=== PATIENT | male | born 1945 | race Caucasian/White ===

== ENCOUNTER 2017-10-09 08:46 | Day surgery (SDC) | payer OTHER, MEDICARE ==
[~2017-10-09 08:46] MED LIST: PROPOFOL INJ 200 MG/20 ML VIAL IV ONE
[2017-10-09 11:38] VITALS: BP 159/91
--- NOTE | 2017-10-09 16:03 | Operative Report ---
Operative Report DATE OF SURGERY: 10/09/17 Operative Report: The risks, benefits and alternatives of the procedure including the risks of bleeding, perforation requiring surgery are explained to the patient in detail and informed consent is obtained. The patient is taken back to the endoscopy suite and placed in a left, lateral decubital position. Timeout was called. Propofol medication is administered. A rectal examination is done which did not reveal any masses, tears or fissures. An Olympus videoscope was inserted into the patient's rectum. The scope was then carefully advanced all the way to the cecum. The cecum was identified by the usual anatomical landmarks including the ileocecal valve as well as the appendiceal office. Photodocumentation is obtained. The scope was then sequentially pulled back via the various segments of the colon including the ascending colon, hepatic flexure, transverse colon, splenic flexure, descending colon as well as into the rectosigmoid portions of the colon. Retroflexion maneuver is performed. PREOPERATIVE DIAGNOSIS: Blood in stools POSTOPERATIVE DIAGNOSIS: Internal hemorrhoids. Right-sided colon inflammation status post biopsy OPERATION: Colonoscopy with biopsy SURGEON: DEBRA DUNCAN ANESTHESIA: LMAC TISSUE REMOVED OR ALTERED: As noted above. COMPLICATIONS: None. ESTIMATED BLOOD LOSS: None. INTRAOPERATIVE FINDINGS: As noted above. PROCEDURE: Patient tolerated the procedure well. No immediate postprocedure complications are noted. Patient discharged in good condition. Discharge date 10/09/2017. Discharge diet: Regular. Discharge activity: Regular. 2-3 week follow-up to discuss findings. Patient is instructed to call the office or proceed to the emergency room should there be any further problems or questions. Wait on the pathology. 5 year surveillance colonoscopy.
== END 2017-10-09 11:15 | disposition home or self-care (01) ==
LOC: END 08:46
PROVIDERS: ATTEND Internal Medicine Gastroenterology
DX: K92.1 Melena (principal); K64.8 Other hemorrhoids; K52.9 Noninfective gastroenteritis and colitis, unspecified; J44.9 Chronic obstructive pulmonary disease, unspecified; F17.210 Nicotine dependence, cigarettes, uncomplicated; I10 Essential (primary) hypertension; E11.3591 Type 2 diabetes mellitus with proliferative diabetic retinopathy without macular edema, right eye; K21.9 Gastro-esophageal reflux disease without esophagitis; M19.90 Unspecified osteoarthritis, unspecified site; J44.1 Chronic obstructive pulmonary disease with (acute) exacerbation; E03.9 Hypothyroidism, unspecified; E78.5 Hyperlipidemia, unspecified; Z86.73 Personal history of transient ischemic attack (TIA), and cerebral infarction without residual deficits; Z91.040 Latex allergy status; Z85.828 Personal history of other malignant neoplasm of skin; Z85.51 Personal history of malignant neoplasm of bladder
CPT/HCPCS: 45380; 82962; 88305 ×2; J2704; 811

== ENCOUNTER 2019-01-02 10:15 | Observation (INO) | payer OTHER, MEDICARE ==
[2019-01-02] MEDS ORDERED: INSULIN REG, HUMAN 100 UNIT/ML 3 ML VIAL (PYX) IV ONE ×2 (10:34→13:05)
[2019-01-02] MEDS ORDERED: NORMAL SALINE 1000 ML 1,000 ML IV PRN (10:35)
[2019-01-02 10:56] LABS: APPEARANCE,URINE CLEAR; BILIRUBIN,URINE NEGATIVE (NEGATIVE); COLOR,URINE STRAW; GLUCOSE, URINE >=500 mg/dL (NEGATIVE); KETONES,URINE NEGATIVE (NEGATIVE); LEUKOCYTE ESTERASE,URINE NEGATIVE (NEGATIVE); NITRITE,URINE NEGATIVE (NEGATIVE); PROTEIN,URINE NEGATIVE (NEGATIVE); URINE SPECIFIC GRAVITY 1.028; UROBILINOGEN,URINE NEGATIVE mg/dL (<2.0)
--- NOTE | 2019-01-02 11:01 | ER Document Report ---
ED Syncope and Near Syncope - General Chief Complaint: Syncope Stated Complaint: WEAKNESS Mode of Arrival: Stretcher Information source: Patient TRAVEL OUTSIDE OF THE [place] IN LAST 30 DAYS: No - HPI Patient complains to provider of: Fainting Multiple episodes (how many): 3 When did episodes begin: yesterday When was most recent episode: same Symptoms prior to episode: No: None, Abdominal pain, Back pain, Chest pain, Chills, Diarrhea, Dizziness, Fever, Headache, Hyperventilation, Lightheaded, Nausea/vomiting, Palpitations, Racing heart, Short of breath, Sweaty, Visual disturbance, Other Position/Activity at time of episode: Standing Quality of pain: denies: No pain, Achy, Burning, Cramping, Dull, Fullness, Pressure, Sharp, Stabbing, Throbbing, Other Severity: None Context: Became unresponsive. denies: Almost passed out, Breathing shallow/stopped, Collapsed, Confused after event, Meyers Chuck faint, Incontinent of stool, Incontinent of urine, Lost consciousness, Lost pulse, Low blood sugar, , Recent immobilization, Recent seizures, Recent travel, Seizure activity observed, Other Injury location: No: None, Abdomen, Back, Chest, Face, Head, Mouth, Neck, Tongue, LUE, LLE, RUE, RLE Current symptoms: denies: None/feels back to normal, Abdominal pain, Arm pain, Back pain, Breathing difficulty, Chest pain, Chills, Diarrhea, Dizziness, Fever, Headache, Lightheaded, Nausea, Neck pain, Shoulder pain, Short of breath, Swe aty, Vomiting, Weakness, Other D-stick result: >500 by ems Notes: Note patient is a 73-year-old xza-awqtfvz-eimhiyfqz diabetic who last night was walking and passed out 3 times time he felt somewhat dizzy before hand but no chest pain or shortness of breath. He also admits to being pliant with his diet and eating donuts and apparently his blood sugar by EMS was greater than 500 today. He also claims to have urinary symptoms of frequency and urgency of urination with a history of cancer - Related Data Allergies/Adverse Reactions: latex [Latex] Allergy (Verified 01/02/19 10:31) Past Medical History - Social History Smoking Status: Current Every Day Smoker Family History: Reviewed & Not Pertinent Patient has suicidal ideation: No Patient has homicidal ideation: No - Past Medical History Cardiac Medical History: Reports: Hx Coronary Artery Disease, Hx Hypercholesterolemia, Hx Hypertension Denies: Hx Heart Attack Pulmonary Medical History: Reports: Hx Asthma, Hx Bronchitis, Hx COPD, Hx Pneumonia Neurological Medical History: Reports: Hx Cerebrovascular Accident. Denies: Hx Seizures Endocrine Medical History: Reports: Hx Diabetes Mellitus Type 2 Malignancy Medical History: Reports Hx Prostate Cancer, Reports Hx Skin Cancer Musculoskeletal Medical History: Reports Hx Arthritis Psychiatric Medical History: Denies: Hx Depression Past Surgical History: Reports: Hx Orthopedic Surgery - Immunizations Hx Diphtheria, Pertussis, Tetanus Vaccination: Yes Review of Systems - Review of Systems Constitutional: denies: No symptoms reported, See HPI, Chills, Diaphoresis, Fever, Malaise, Weakness, Other, Weight gain, Weight loss, Recent illness EENT: denies: No symptoms reported, See HPI, Eye pain, Eye discharge, Blurred vision, Tearing, Double vision, Ear pain, Ear discharge, Nose pain, Nose congestion, Nose discharge, Sinus pressure, Sinus discharge, Throat pain, Difficulty swallowing, Throat swelling, Mouth pain, Mouth swelling, Dental problem, Vertigo, Other Cardiovascular: Syncope. denies: No symptoms reported, See HPI, Chest pain, Palpitations, Heart racing, Orthopnea, Dyspnea, Dizziness, Lightheaded, Edema, Other, Paroxysmal Nocturnal Dysp Respiratory: denies: No symptoms reported, See HPI, Cough, Hurts to breathe, Hemoptysis, Short of breath, Sputum, Stridor, Wheezing, Other Gastrointestinal: denies: No symptoms reported, See HPI, Abdomen distended, Abdominal pain, Diarrhea, Nausea, Vomiting, Constipation, Blood streaked bowels, Poor appetite, Poor fluid intake, Blood in vomit, Black stools, Rectal blee ding, Last bowel movement, Fecal incontinence, Other Genitourinary: Frequency, Urgency. denies: No symptoms reported, See HPI, Burning, Dysuria, Discharge, Flank pain, Hematuria, Incontinence, Pain, Retention, Other Neurological/Psychological: denies: No symptoms reported, See HPI, Confusion, Dementia, Depression, Hallucinations, Anxiety, Homicidal ideation, Sensory change, Weakness, Gait changes, Loss of power, Paralysis, Seizure, Lost consciou sness, Headaches, Speech impairment, Numbness, Suicidal ideation, Tingling, Tremor, Other -: Yes All other systems reviewed and negative Physical Exam - Vital signs Vitals: Temp Pulse Resp BP Pulse Ox 97.9 F 51 L 14 148/70 H 96 01/02/19 10:26 01/02/19 10:26 01/02/19 10:26 01/02/19 10:26 01/02/19 10:26 Notes: PHYSICAL EXAMINATION: GENERAL: Well-appearing, well-nourished and in no acute distress. HEAD: Atraumatic, normocephalic. EYES: Pupils equal round and reactive to light, extraocular movements intact, sclera anicteric, conjunctiva are normal. ENT: nares patent, oropharynx clear without exudates. Moist mucous membranes. NECK: Normal range of motion, supple without lymphadenopathy LUNGS: Breath sounds clear to auscultation bilaterally and equal. No wheezes rales or rhonchi. HEART: Regular rate and rhythm without murmurs ABDOMEN: Soft, nontender, normoactive bowel sounds. No guarding, no rebound. No masses appreciated. EXTREMITIES: Normal range of motion, no pitting or edema. No cyanosis. NEUROLOGICAL: No focal neurological deficits. Moves all extremities spontaneously and on command. PSYCH: Normal mood, normal affect. SKIN: Warm, Dry, normal turgor, no rashes or lesions noted. Course - Vital Signs Vital signs: Temp Pulse Resp BP Pulse Ox 97.9 F 51 L 17 98/52 L 92 01/02/19 10:26 01/02/19 10:26 01/02/19 12:02 01/02/19 12:02 01/02/19 12:02 - Laboratory Result Diagrams: 01/02/19 10:49 01/02/19 10:49 Laboratory results interpreted by me: 01/02/19 01/02/19 01/02/19 10:33 10:49 10:49 WBC 10.8 H RBC 3.95 L MCV 100 H MCH 34.3 H Sodium 128.1 L Chloride 89 L BUN 22 H Creatinine 1.26 H Est GFR (MDRD) Non-Af 56 L Glucose 624 H* POC Glucose Lactic Acid (Sepsis) Creatine Kinase 309 H Total Protein 6.2 L Urine Glucose (UA) >=500 H 01/02/19 01/02/19 10:49 12:57 WBC RBC MCV MCH Sodium Chloride BUN Creatinine Est GFR (MDRD) Non-Af Glucose POC Glucose 417 H* Lactic Acid (Sepsis) 2.2 H Creatine Kinase Total Protein Urine Glucose (UA) - Diagnostic Test Radiology reviewed: Image reviewed, Reports reviewed Discharge - Discharge Clinical Impression: Symptomatic bradycardia Syncope Qualifiers: Syncope type: unspecified Qualified Code(s): R55 - Syncope and collapse Hyperglycemia due to type 2 diabetes mellitus Qualifiers: Diabetes mellitus snf insulin use: without terminal superintendent use Qualified Code(s): E11.65 - Type 2 diabetes mellitus with hyperglycemia Condition: Stable Disposition: ADMITTED INPATIENT Admitting Provider: Onime (Hospitalist) Unit Admitted: Telemetry
[2019-01-02 11:06] LABS: ABSOLUTE BASOPHILS # (AUTO) 0.1 10^3/uL (0.0-0.2); ABSOLUTE EOSINOPHILS # (AUTO) 0.2 10^3/uL (0.0-0.6); ABSOLUTE LYMPHOCYTES (AUTO) 2.7 10^3/uL (0.5-4.7); ABSOLUTE MONOCYTES (AUTO) 0.7 10^3/uL (0.1-1.4); ABSOLUTE NEUT (AUTO) 7.1 10^3/uL (1.7-8.2); BASOPHILS % (AUTO) 0.5 % (0-2); EOSINOPHILS % (AUTO) 1.8 % (0-6); HEMATOCRIT 39.6 % (37.9-51.0); HEMOGLOBIN 13.5 g/dL (13.5-17.0); LYMPHOCYTES % (AUTO) 25.5 % (13-45); MEAN CORPUSCULAR HEMOGLOBIN 34.3 pg (27.0-33.4); MEAN CORPUSCULAR HGB CONC 34.2 g/dL (32.0-36.0); MEAN CORPUSCULAR VOLUME 100 fl (80-97); MONOCYTES % (AUTO) 6.8 % (3-13); PLATELET COUNT 197 10^3/uL (150-450); RED BLOOD COUNT 3.95 10^6/uL (4.35-5.55); RED CELL DISTRIBUTION WIDTH 13.1 % (11.5-14.0); SEGMENTED NEUTROPHILS % (AUTO) 65.4 % (42-78); TOTAL CELLS COUNTED % (AUTO) 100 %; WHITE BLOOD COUNT 10.8 10^3/uL (4.0-10.5)
--- NOTE | 2019-01-02 11:17 | RADIOLOGY REPORT (SQ) ---
EXAM DESCRIPTION: CHEST SINGLE VIEW COMPLETED DATE/TIME: 01/02/2019 11:03 am REASON FOR STUDY: syncope COMPARISON: AP view of the chest from 07/21/2015. EXAM PARAMETERS: NUMBER OF VIEWS: One view. TECHNIQUE: Single frontal radiographic view of the chest acquired. RADIATION DOSE: NA LIMITATIONS: None. FINDINGS: LUNGS AND PLEURA: No consolidation, pleural effusion or pneumothorax. MEDIASTINUM AND HILAR STRUCTURES: No mediastinal or hilar contour abnormality. HEART AND VASCULAR STRUCTURES: The cardiac silhouette and pulmonary vasculature are within normal currie its given the low inspiratory lung volumes. BONES: No acute findings. HARDWARE: None in the chest. OTHER: No other finding. IMPRESSION: Low inspiratory lung volumes without a superimposed acute cardiopulmonary process. TECHNICAL DOCUMENTATION: JOB ID: [id number] [employer]- All Rights Reserved Reading location - IP/workstation name: [email or web address]
[2019-01-02 11:29] LABS: INTERNATIONAL RATION (INR) 0.95; PROTHROMBIN TIME 12.6 SEC (11.4-15.4)
[2019-01-02 11:32] LABS: ALBUMIN 3.7 g/dL (3.5-5.0); ALKALINE PHOSPHATASE 86 U/L (38-126); ANION GAP 9 (5-19); ASPARTATE AMINO TRANSFERASE 25 U/L (17-59); BILIRUBIN,DIRECT 0.1 mg/dL (0.0-0.4); BILIRUBIN,TOTAL 0.6 mg/dL (0.2-1.3); BLOOD UREA NITROGEN 22 mg/dL (7-20); CALCIUM 9.8 mg/dL (8.4-10.2); CARBON DIOXIDE 30 mmol/L (22-30); CHLORIDE 89 mmol/L (98-107); CREATINE KINASE 309 U/L (55-170); POTASSIUM 4.5 mmol/L (3.6-5.0); TOTAL PROTEIN 6.2 g/dL (6.3-8.2)
[2019-01-02 11:42] LABS: GLUCOSE 624 mg/dL (75-110)
[2019-01-02 11:44] LABS: CREATINE KINASE MB 3.83 ng/mL (<4.55); TROPONIN I < 0.012 ng/mL
--- NOTE | 2019-01-02 13:10 | RADIOLOGY REPORT (SQ) ---
EXAM DESCRIPTION: CT HEAD WITHOUT COMPLETED DATE/TIME: 01/02/2019 12:55 pm REASON FOR STUDY: head injury COMPARISON: CT of the head without contrast from 07/13/2018. TECHNIQUE: Axial images acquired through the brain without intravenous contrast. Images reviewed wi th bone, brain and subdural windows. Additional sagittal and coronal reconstructions were generated. Images stored on PACS. All CT scanners at this facility use dose modulation, iterative reconstruction, and/or weight based d osing when appropriate to reduce radiation dose to as low as reasonably achievable (ALARA). [facility]: Dose Right [facility]: CareDose [facility]: Dose Right [facility]: Teradose 4D [facility]: [employer] RADIATION DOSE: CT Rad equipment meets quality standard of care and radiation dose reduction techniq ues were employed. CTDIvol: 53.2 mGy. DLP: 1097 mGy-cm. mGy. LIMITATIONS: None. FINDINGS: Chronic left parietal infarct. There is no acute intracranial hemorrhage, vascular territ orial infarct, extra-axial fluid collection, mass effect or midline shift. There is no effacement of the cerebral sulci or basal subarachnoid cisterns. The snow-white matter differentiation is preserv ed. The caliber the ventricles is concordant with the degree of sulcation. There is no hydrocephalu s. There is no fracture of the calvarium. The orbits and globes are intact. The paranasal sinuses and the mastoid air cells are clear. IMPRESSION: No acute intracranial abnormality. EVIDENCE OF ACUTE STROKE: NO. COMMENT: Quality ID # [id number]: Final reports with documentation of one or more dose reduction techniques (e.g., Automated exposure control, adjustment of the mA and/or kV according to patient size, use of iterative reconstruction technique) TECHNICAL DOCUMENTATION: JOB ID: [id number] [employer]- All Rights Reserved Reading location - IP/workstation name: [email or web address]
--- NOTE | 2019-01-02 13:37 | EKG REPORT ---
SEVERITY:- ABNORMAL ECG - SINUS RHYTHM LEFT ANTERIOR FASCICULAR BLOCK : Confirmed by: Juan Ramon Wilkins MD 02-Jan-2019 13:36:14
[2019-01-02] MEDS ORDERED: DIAZEPAM 5 MG TABLET PO PRN (14:35)
[2019-01-02] MEDS ORDERED: DEXTROSE 40% GEL 15 GM TUBE PO PRN ×2 (14:35)
[2019-01-02] MEDS ORDERED: GLUCAGON,HUMAN RECOMB 1 MG INJ IM PRN (14:35)
[2019-01-02] MEDS ORDERED: DEXTROSE 50%-WATER 25 GM/50 ML DISP.SYRIN IV PRN ×2 (14:35)
[2019-01-02] MEDS ORDERED: MAG HYDROX/AL HYDROX/SIMETH SUSP 30 ML UDCUP PO PRN (14:37)
[2019-01-02] MEDS ORDERED: PROMETHAZINE HCL INJ 25 MG/1 ML VIAL IV PRN (14:37)
[2019-01-02] MEDS ORDERED: ACETAMINOPHEN 325 MG TABLET PO PRN (14:37)
[2019-01-02] MEDS ORDERED: ALBUTEROL SULFATE 0.083% NEB 2.5 MG/3 ML AMPUL NEB PRN (14:37)
[2019-01-02] MEDS ORDERED: ONDANSETRON HCL INJ/PF 4 MG/2 ML SDV IV PRN (14:37)
[2019-01-02] MEDS ORDERED: HYDRALAZINE HCL INJ/PF 20 MG/1 ML SDV IV PRN (14:50)
[2019-01-02] MEDS ORDERED: HYDROCORTISONE ACETATE 25 MG SUPP.RECT PR PRN (14:51)
[2019-01-02 15:14] LABS: URINE AMPHETAMINES SCREEN NEGATIVE; URINE BARBITURATES SCREEN NEGATIVE; URINE BENZODIAZEPINES SCREEN NEGATIVE; URINE COCAINE SCREEN NEGATIVE; URINE METHADONE SCREEN NEGATIVE; URINE PHENCYCLIDINE SCREEN NEGATIVE
[2019-01-02 15:23] LABS: URINE MARIJUANA (THC) SCREEN NEGATIVE
[2019-01-02] MEDS: NICOTINE 21 MG/24 HR PATCH.TD24 TD SCH (15:57)
[2019-01-02] MEDS: INSULIN LISPRO 100 UNIT/ML 3 ML VIAL SUBCUT SCH ×2 (15:58→22:51)
[2019-01-02] MEDS: NORMAL SALINE 1000 ML 1,000 ML IV PRN (17:52)
--- NOTE | 2019-01-02 17:59 | RADIOLOGY REPORT (SQ) ---
EXAM DESCRIPTION: CTA CHEST COMPLETED DATE/TIME: 01/02/2019 5:35 pm REASON FOR STUDY: dyspnea, hypoxia, confusion, syncope COMPARISON: None. TECHNIQUE: CT scan of the chest performed using helical scanning technique with dynamic intravenous contrast injection. Images reviewed with lung, soft tissue and bone windows. Reconstructed coronal and sagittal MPR images reviewed. Additional 3 dimensional post-processing performed to develop Maximal Intensity Projection images ([place] P). All images stored on PACS. All CT scanners at this facility use dose modulation, iterative reconstruction, and/or weight based d osing when appropriate to reduce radiation dose to as low as reasonably achievable (ALARA). [facility]: Dose Right [facility]: CareDose [facility]: Dose Right [facility]: Teradose 4D [facility]: [employer] CONTRAST TYPE AND DOSE: contrast/concentration: Isovue 350.00 mg/ml; Total Contrast Delivered: 67.0 ml; Total Saline Delivered: 55.0 ml Contrast bolus optimized for the pulmonary arteries. Not diagnostic for the aorta. RENAL FUNCTION: GFR > 60. RADIATION DOSE: CT Rad equipment meets quality standard of care and radiation dose reduction techniq ues were employed. CTDIvol: 19.8 - 24.0 mGy. DLP: 938 mGy-cm. . LIMITATIONS: None. FINDINGS: LUNGS AND PLEURA: No pneumothorax. No consolidation or pleural effusions. Minimal right lower lobe basilar subsegmental atelectasis. Scattered subpleural interstitial changes. AORTA AND GREAT VESSELS: No aneurysm. Contrast bolus not optimized for the aorta. HEART: No pericardial effusion. Mild coronary artery calcifications. PULMONARY ARTERIES: No emboli visualized in the main pulmonary arteries or the segmental branches. HILAR AND MEDIASTINAL STRUCTURES: No identified masses or abnormal nodes. HARDWARE: None in the chest. UPPER ABDOMEN: No acute findings. Renal cyst - calcifications. Limited exam. THYROID AND OTHER SOFT TISSUES: No masses. No adenopathy. BONES: No acute finding. 3D MIPS: Confirm above findings. OTHER: No other significant finding. IMPRESSION: No emboli visualized in the main pulmonary arteries or the segmental branches.No consoli dation or pleural effusions. Minimal right lower lobe basilar subsegmental atelectasis. Scattered moss bpleural interstitial changes. COMMENT: Quality ID # [id number]: Final reports with documentation of one or more dose reduction techniques (e.g., Automated exposure control, adjustment of the mA and/or kV according to patient size, use of iterative reconstruction technique) TECHNICAL DOCUMENTATION: JOB ID: [id number] [place]-72 2010 [employer]- All Rights Reserved Reading location - IP/workstation name: [email or web address]
[2019-01-02] MEDS ORDERED: (PENDING PHARMACY ID) (Ipratropium/Albuterol Sulfate [Combivent Respimat 4 Gm Mdi] 1 PUFF) IH SCH (18:00)
--- NOTE | 2019-01-02 19:32 | PDOC H&P ---
History of Present Illness Admission Date/PCP: 01/02/19 13:[facility] Patient complains of: falls History of Present Illness: SONYA MONTOYA is a 73 year old male with a past medical history of hypertension, hyperlipidemia, COPD, hypothyroidism, DM 2, GERD, tobacco dependence with continuous use, and alcohol dependence with continuous use who presented to the emergency department today with a complaint of increased frequency of falls. He reports that he fell 3 times yesterday, without syncope or injury, and then again at his PCPs office today which prompted his referral to the emergency department. Patient does report that he has had 3 days of decreased appetite, generalized malaise, polydipsia, polyuria, and increased blood sugars. He reports that due to his feeling unwell, he also ceased drinking alcohol 3 days ago. Evaluation in the emergency department demonstrated sinus bradycardia, hypertension, mild leukocytosis, elevated d-dimer, hyponatremia (128) NEGIN, hyperglycemia (624) elevated lactic acid (2.2), unremarkable urinalysis and UDS. Head CT was negative for acute findings. Chest x-ray was benign. CT of the chest was negative for pulmonary embolus. He was referred to the hospital service for admission and management of the above-stated complaints and findings. Past Medical History Cardiac Medical History: Reports: Coronary Artery Disease, Hyperlipidema, Hypertension Denies: Congestive Heart Failure, Myocardial Infarction Pulmonary Medical History: Reports: Asthma, Bronchitis, Chronic Obstructive Pulmonary Disease (COPD), Pneumonia, Respiratory Failure - Home O2 dependent Denies: Tuberculosis Neurological Medical History: Denies: Ischemic CVA, Seizures Endocrine Medical History: Reports: Diabetes Mellitus Type 2, Obesity Renal/ Medical History: Denies: End Stage Renal Disease Malignancy Medical History: Reports: Skin Cancer GI Medical History: Reports: Gastroesophageal Reflux Disease Denies: Cirrhosis Musculoskeltal Medical History: Reports: Arthritis Psychiatric Medical History: Reports: Alcohol Dependency, Tobacco Dependency Denies: Bipolar Disorder, Depression Hematology: Denies: Anemia, Bleeding Tendencies Past Surgical History Past Surgical History: Reports: Orthopedic Surgery Social History Information Source: Patient, Friend, [facility] Records Lives with: Friend Smoking Status: Current Every Day Smoker Cigarettes Packs Per Day: 1 Frequency of Alcohol Use: Heavy Hx Recreational Drug Use: No Drugs: None Hx Prescription Drug Abuse: No - Advance Directive Resuscitation Status: Full Code Family History Family History: Patient did not participate/volunteer information Parental Family History Reviewed: No Children Family History Reviewed: NA Sibling(s) Family History Reviewed.: NA Medication/Allergy Home Medications: Aspirin [Ecotrin 81 mg EC Tablet] 81 mg PO DAILY 01/02/19 Baclofen [Baclofen 20 Mg Tablet] 20 mg PO BID 01/02/19 Bisacodyl [Dulcolax 5 Mg Tablet] 10 mg PO QHS 01/02/19 Budesonide/Formoterol Fumarate [Symbicort Hfa 160-4.5 Mcg Inhaler 6 gm] 2 puff IH DAILY 01/02/19 Clonazepam [Klonopin 1 mg Tablet] 0.5 mg PO BID 01/02/19 Cyanocobalamin (Vitamin B-12) [Vitamin B-12 1000 Mcg Tablet] 500 mcg PO DAILY 01/02/19 Diphenhydramine HCl [Benadryl 25 mg Capsule] 25 mg PO BID 01/02/19 Fluticasone Propionate [Flonase Nasal Kenner 50 Mcg/Kenner 16 gm] 2 sprays NASL Q12 01/02/19 Hydrocortisone Acetate [Anusol Hc 25 mg Supp.rect] 25 mg [place] DAILYP PRN 01/02/19 Ipratropium/Albuterol Sulfate [Combivent Respimat 4 gm Mdi] 1 puff IH Q6 01/02/19 Lactulose [Constulose 10 gm/15 mL Oral Solution] 10 ml PO DAILY 01/02/19 Levothyroxine Sodium [Synthroid 0.075 mg Tablet] 0.075 mg PO Q6AM 01/02/19 Loratadine [Claritin 10 mg Tablet] 10 mg PO DAILY 01/02/19 Losartan Potassium [Cozaar 100 mg Tablet] 100 mg PO DAILY 01/02/19 Metformin HCl [Glucophage 500 mg Tablet] 500 mg PO QAM 01/02/19 Metoprolol Tartrate [Lopressor 100 mg Tablet] 100 mg PO Q12 01/02/19 Onia-3 Fatty Acids/Fish Oil [Fish Oil 1,000 Mg Capsule] 2 each PO BID 01/02/19 Omeprazole 20 mg PO DAILY 01/02/19 Simvastatin [Zocor 80 mg Tablet] 40 mg PO QHS 01/02/19 Triamcinolone Acetonide [Aristocort 0.1% Cream 15 gm] 1 applic TP BIDP PRN 01/02/19 Urea [Carmol 20% Cream 85 Gm] 1 applic TP BIDP PRN 01/02/19 Allergies/Adverse Reactions: latex [Latex] Allergy (Verified 01/02/19 10:31) Review of Systems Constitutional: PRESENT: anorexia, fatigue, weakness. ABSENT: chills, fever(s), headache(s), weight gain, weight loss Eyes: ABSENT: visual disturbances Ears: ABSENT: hearing changes Cardiovascular: ABSENT: chest pain, dyspnea on exertion, edema, orthropnea, palpitations Respiratory: ABSENT: cough, hemoptysis Gastrointestinal: ABSENT: abdominal pain, constipation, diarrhea, hematemesis, hematochezia, nausea, vomiting Genitourinary: ABSENT: dysuria, hematuria Musculoskeletal: ABSENT: joint swelling Integumentary: ABSENT: rash, wounds Neurological: PRESENT: frequent falls, weakness. ABSENT: abnormal gait, abnormal speech, confusion, dizziness, focal weakness, syncope Psychiatric: ABSENT: anxiety, depression, homidical ideation, suicidal ideation Endocrine: PRESENT: polydipsia, polyuria. ABSENT: cold intolerance, heat intolerance Hematologic/Lymphatic: ABSENT: easy bleeding, easy bruising Physical Exam Vital Signs: Temp Pulse Resp BP Pulse Ox 97.8 F 51 L 24 H 142/56 H 98 01/02/19 17:45 01/02/19 17:45 01/02/19 17:45 01/02/19 17:45 01/02/19 17:45 Intake & Output 01/01/19 01/02/19 01/03/19 06:59 06:59 06:59 Intake Total 1000 Balance 1000 Weight 95.7 kg General appearance: PRESENT: no acute distress, disheveled, obese, well- developed, well-nourished. ABSENT: cooperative Head exam: PRESENT: atraumatic, normocephalic Eye exam: PRESENT: conjunctiva pink, EOMI, PERRLA. ABSENT: scleral icterus Ear exam: PRESENT: normal external ear exam Mouth exam: PRESENT: dry mucosa, tongue midline Teeth exam: PRESENT: poor dentation Respiratory exam: PRESENT: clear to auscultation iram, decreased breath sounds - bibasilar; poor effort, prolonged expiratory phas, symmetrical, unlabored. ABSENT: rales, rhonchi, wheezes Cardiovascular exam: PRESENT: RRR, +S1, +S2. ABSENT: diastolic murmur, rubs, systolic murmur Pulses: PRESENT: normal dorsalis pedis pul Vascular exam: PRESENT: normal capillary refill GI/Abdominal exam: PRESENT: normal bowel sounds, soft. ABSENT: distended, guarding, mass, organolmegaly, rebound, tenderness Rectal exam: PRESENT: deferred Extremities exam: PRESENT: full ROM. ABSENT: calf tenderness, clubbing, pedal edema Neurological exam: PRESENT: alert, awake, oriented to person, oriented to place, oriented to time, oriented to situation, CN II-XII grossly intact, other - delayed response, repetative. ABSENT: motor sensory deficit Psychiatric exam: PRESENT: agitated, appropriate affect. ABSENT: homicidal ideation, suicidal ideation Skin exam: PRESENT: dry, intact, warm. ABSENT: cyanosis, rash Results Laboratory Results: 01/02/19 10:49 01/02/19 10:49 01/02/19 01/02/19 01/02/19 10:33 10:49 10:49 WBC 10.8 H RBC 3.95 L Hgb 13.5 Hct 39.6 MCV 100 H MCH 34.3 H MCHC 34.2 RDW 13.1 Plt Count 197 Seg Neutrophils % 65.4 Sodium 128.1 L Potassium 4.5 Chloride 89 L Carbon Dioxide 30 Anion Gap 9 BUN 22 H Creatinine 1.26 H Est GFR ( Amer) > 60 Glucose 624 H* Calcium 9.8 Magnesium Total Bilirubin 0.6 AST 25 Alkaline Phosphatase 86 Ammonia Total Protein 6.2 L Albumin 3.7 Urine Color STRAW Urine Appearance CLEAR Urine pH 7.0 Ur Specific Delano 1.028 Urine Protein NEGATIVE Urine Glucose (UA) >=500 H Urine Ketones NEGATIVE Urine Blood NEGATIVE Urine Nitrite NEGATIVE Ur Leukocyte Esterase NEGATIVE Urine WBC (Auto) 1 Urine RBC (Auto) 0 01/02/19 01/02/19 10:49 15:22 WBC RBC Hgb Hct MCV MCH MCHC RDW Plt Count Seg Neutrophils % Sodium Potassium Chloride Carbon Dioxide Anion Gap BUN Creatinine Est GFR ( Amer) Glucose Calcium Magnesium 1.4 L Total Bilirubin AST Alkaline Phosphatase Ammonia < 8.7 L Total Protein Albumin Urine Color Urine Appearance Urine pH Ur Specific [place] Urine Protein Urine Glucose (UA) Urine Ketones Urine Blood Urine Nitrite Ur Leukocyte Esterase Urine WBC (Auto) Urine RBC (Auto) 01/02/19 01/02/19 10:49 10:49 Creatine Kinase 309 H CK-MB (CK-2) 3.83 Troponin I < 0.012 Impressions: Chest/Abdomen CTA 01/02/19 00:00 IMPRESSION: No emboli visualized in the main pulmonary arteries or the segmental branches.No consolidation or pleural effusions. Minimal right lower lobe basilar subsegmental atelectasis. Scattered subpleural interstitial changes. Chest X-Ray 01/02/19 10:32 IMPRESSION: Low inspiratory lung volumes without a superimposed acute cardiopulmonary process. Head CT 01/02/19 12:06 IMPRESSION: No acute intracranial abnormality. EVIDENCE OF ACUTE STROKE: NO. Assessment and Plan - Diagnosis (1) Hyperglycemia due to type 2 diabetes mellitus Qualifiers: Diabetes mellitus nursing home insulin use: without nursing home use Qualified Code(s): E11.65 - Type 2 diabetes mellitus with hyperglycemia Is this a current diagnosis for this admission?: Yes Plan: We will check A1c with a.m. lab work. Consistent carb diet. Accu-Cheks before meals and at bedtime with Humalog for sliding scale coverage. Hypoglycemia protocol in place. Continue IV fluids. Registered dietitian and life skills educator consulted. (2) Hyponatremia Is this a current diagnosis for this admission?: Yes Plan: Patient received a 1 L normal saline bolus by the ED provider. We will continue gentle IV fluids. Follow-up chemistry. (3) Hypomagnesemia Is this a current diagnosis for this admission?: Yes Plan: Likely secondary to alcohol abuse and recent poor p.o. intake. Magnesium 1.4. We will replace with IV magnesium. (4) Alcohol dependence Qualifiers: Substance use status: in withdrawal Complication of substance-induced condition: with unspecified complication Qualified Code(s): F10.239 - Alcohol dependence with withdrawal, unspecified Is this a current diagnosis for this admission?: Yes Plan: The patient and roommate confirm the patient drinks a half a bottle of vodka daily. He discontinued drinking 3 days ago due to generalized malaise. He presents with hyponatremia, hypomagnesemia, increased confusion, and frequent falls. We will replace magnesium. IV banana bag nightly. Scheduled Valium. PRN IV Ativan and hydralazine as needed for acute agitation/withdrawal. Discharge planning is consulted. Fall and seizure precautions. (5) Frequent falls Is this a current diagnosis for this admission?: Yes Plan: Multifactorial secondary to alcohol dependence with withdrawal, chronic respiratory failure with oxygen dependence and noncompliance, hyperglycemia resulting in polydipsia/polyuria (impulsive behavior related to need to urinate). Fall risk. PT/OT consulted. Orthostatic blood pressures qshift. Patient and friend adamantly denies syncopal/presyncopal symptoms prior to his falls. Denies loss of consciousness. Therefore we will hold on obtaining echocardiogram at this time. Management of disease specific conditions as above. (6) Chronic respiratory failure Qualifiers: Respiratory failure complication: hypoxia Qualified Code(s): J96.11 - Chronic respiratory failure with hypoxia Is this a current diagnosis for this admission?: Yes Plan: Secondary to COPD. Chest imaging is negative for acute processes today. Patient reports that he utilizes home O2 at 4 L/min and CPAP at home. We will continue supplemental oxygen as needed. CPAP nightly. As needed nebulizer treatments. Indications for antibiotic or steroid therapy at this time. (7) Tobacco dependence Is this a current diagnosis for this admission?: Yes Plan: Smoking cessation encouraged. Nicotine or placement therapies provided. - Time Time Spent with patient: 35 or more minutes Medications reviewed and adjusted accordingly: Yes Anticipated discharge: Home with Homehealth Within: within 24 hours
[2019-01-02] MEDS ORDERED: IPRATROPIUM/ALBUTEROL 0.5-2.5 MG/3 ML AMPUL NEB SCH (20:00)
[2019-01-02] MEDS: NORMAL SALINE 1000 ML 1,000 ML with POTASSIUM CHLORIDE 20 MEQ, MAGNESIUM SULFATE 8 MEQ,... IV SCH ×5 (20:09)
[2019-01-02] MEDS: MAGNESIUM SULFATE/D5W 1 GM/100 ML RTUPB IV SCH ×2 (20:46→22:13)
[2019-01-02] MEDS: LORAZEPAM INJ 2 MG/1 ML VIAL IV PRN ×2 (20:48→22:59)
[2019-01-02] MEDS ORDERED: (PENDING PHARMACY ID) (Simvastatin [Zocor 80 Mg Tablet] 40 MG) PO SCH (22:00)
[2019-01-02] MEDS: HEPARIN SOD (PORCINE) 5,000 UNIT/ML 1 ML VIAL SUBCUT SCH (22:51)
[2019-01-02] MEDS: FLUTICASONE NASAL SPRAY 50 MCG/SPRY 120 SPRAY/16 GM NASL SCH (22:53)
[2019-01-02] MEDS: SIMVASTATIN 40 MG TABLET PO SCH (22:53)
[2019-01-02] MEDS: HALOPERIDOL LACTATE INJ 5 MG/1 ML VIAL IV PRN (23:36)
[2019-01-03] MEDS ORDERED: LORAZEPAM INJ 2 MG/1 ML VIAL ONE (00:33)
[2019-01-03] MEDS ORDERED: LORAZEPAM INJ 2 MG/1 ML VIAL IV ONE ×2 (00:45→16:30)
[2019-01-03] MEDS: LORAZEPAM INJ 2 MG/1 ML VIAL IV PRN ×4 (02:29→18:24)
[2019-01-03] MEDS: HALOPERIDOL LACTATE INJ 5 MG/1 ML VIAL IV PRN ×3 (05:51→22:12)
[2019-01-03] MEDS: HEPARIN SOD (PORCINE) 5,000 UNIT/ML 1 ML VIAL SUBCUT SCH ×3 (05:51→21:12)
[2019-01-03] MEDS: LEVOTHYROXINE SODIUM 0.075 MG TABLET PO SCH (05:55)
[2019-01-03 06:19] LABS: HEMATOCRIT 38.4 % (37.9-51.0); HEMOGLOBIN 13.3 g/dL (13.5-17.0); MEAN CORPUSCULAR HEMOGLOBIN 34.3 pg (27.0-33.4); MEAN CORPUSCULAR HGB CONC 34.7 g/dL (32.0-36.0); MEAN CORPUSCULAR VOLUME 99 fl (80-97); PLATELET COUNT 179 10^3/uL (150-450); RED BLOOD COUNT 3.89 10^6/uL (4.35-5.55); RED CELL DISTRIBUTION WIDTH 12.9 % (11.5-14.0); WHITE BLOOD COUNT 10.1 10^3/uL (4.0-10.5)
[2019-01-03 06:29] LABS: ALBUMIN 3.4 g/dL (3.5-5.0); ALKALINE PHOSPHATASE 63 U/L (38-126); ANION GAP 8 (5-19); ASPARTATE AMINO TRANSFERASE 28 U/L (17-59); BILIRUBIN,DIRECT 0.1 mg/dL (0.0-0.4); BILIRUBIN,TOTAL 0.5 mg/dL (0.2-1.3); BLOOD UREA NITROGEN 17 mg/dL (7-20); CALCIUM 8.9 mg/dL (8.4-10.2); CARBON DIOXIDE 26 mmol/L (22-30); CHLORIDE 101 mmol/L (98-107); GLUCOSE 241 mg/dL (75-110); POTASSIUM 4.2 mmol/L (3.6-5.0); TOTAL PROTEIN 5.8 g/dL (6.3-8.2)
[2019-01-03] MEDS: INSULIN LISPRO 100 UNIT/ML 3 ML VIAL SUBCUT SCH ×4 (08:20→22:12)
[2019-01-03] MEDS: PANTOPRAZOLE SODIUM 20 MG TABLET.DR PO SCH (08:41)
[2019-01-03] MEDS ORDERED: (PENDING PHARMACY ID) (Lactulose [Constulose 10 Gm/15 Ml Oral Solution] 10 ML) PO SCH (10:00)
[2019-01-03] MEDS: NICOTINE 21 MG/24 HR PATCH.TD24 TD SCH (10:03)
[2019-01-03] MEDS: LOSARTAN POTASSIUM 50 MG TABLET PO SCH (10:04)
[2019-01-03] MEDS: LORATADINE 10 MG TABLET PO SCH (10:04)
[2019-01-03] MEDS: LACTULOSE SYRUP 20 GM/30 ML UDCUP PO SCH (10:04)
[2019-01-03] MEDS: ASPIRIN 81 MG TABLET, ENT COATED PO SCH (10:05)
[2019-01-03] MEDS: METOPROLOL SUCCINATE 50 MG TAB.SR.24H PO SCH ×2 (10:05→21:12)
[2019-01-03] MEDS: FLUTICASONE NASAL SPRAY 50 MCG/SPRY 120 SPRAY/16 GM NASL SCH ×2 (10:05→21:13)
[2019-01-03] MEDS: FLUTICASONE/VILANTEROL 200-25 MCG/DOSE IH SCH (10:15)
[2019-01-03] MEDS: NORMAL SALINE 1000 ML 1,000 ML IV PRN (10:16)
[2019-01-03] MEDS ORDERED: PROMETHAZINE HCL INJ 25 MG/1 ML VIAL IV PRN (11:00)
[2019-01-03] MEDS: INSULIN GLARGINE,HUM.REC.ANLOG 1,000 UNIT/10 ML VIAL SUBCUT SCH (11:46)
[2019-01-03] MEDS: IPRATROPIUM/ALBUTEROL 0.5-2.5 MG/3 ML AMPUL NEB SCH ×2 (14:25→20:43)
--- NOTE | 2019-01-03 15:53 | PDOC PROGRESS REPORT ---
Subjective Progress Note for:: 01/03/19 Subjective:: SONYA MONTOYA is a 73 year old male with a past medical history of hypertension, hyperlipidemia, COPD, hypothyroidism, DM 2, GERD, tobacco dependence with continuous use, and alcohol dependence with continuous use who was admitted 01/02/2019 for hyperglycemia, hyponatremia, hypomagnesemia, alcohol dependence, and frequent falls. Patient was seen on morning rounds. He was found resting in bed, lying prone, with CPAP in place. The patient was noted to be awake and interacting with nursing staff immediately prior to my entering the room, however, would not open his eyes or respond to my questions. He did withdraw to touch. He has been noted to be intermittently noncompliant, intentionally nonverbal, and verbally abusive with staff members. ROS is limited due to lack of patient participation in discussion this morning. He does appear to be comfortable and is not noted to be in any acute distress at this time. No concerns per nursing at this time. Reason For Visit: HYPERGLYCEMIA,ALCOHOL ABUSE,FALLS Physical Exam Vital Signs: Temp Pulse Resp BP Pulse Ox 97.6 F 65 16 152/82 H 96 01/03/19 11:32 01/03/19 14:25 01/03/19 14:25 01/03/19 11:32 01/03/19 14:25 Intake & Output 01/02/19 01/03/19 01/04/19 06:59 06:59 06:59 Intake Total 3622 744 Output Total 850 Balance 2772 744 Weight 101.3 kg General appearance: PRESENT: no acute distress, disheveled, obese, well- developed, well-nourished. ABSENT: cooperative Head exam: PRESENT: atraumatic, normocephalic Eye exam: PRESENT: conjunctiva pink, EOMI, PERRLA. ABSENT: scleral icterus Ear exam: PRESENT: normal external ear exam Mouth exam: PRESENT: moist, tongue midline Teeth exam: PRESENT: poor dentation Respiratory exam: PRESENT: clear to auscultation iram, prolonged expiratory phas, symmetrical, unlabored, other - CPAP. ABSENT: rales, rhonchi, wheezes Cardiovascular exam: PRESENT: other - Unable to auscultate secondary to patient's participation/positioning Pulses: PRESENT: normal dorsalis pedis pul Vascular exam: PRESENT: normal capillary refill GI/Abdominal exam: PRESENT: normal bowel sounds, soft. ABSENT: distended, guarding, mass, organolmegaly, rebound, tenderness Rectal exam: PRESENT: deferred Extremities exam: PRESENT: full ROM. ABSENT: calf tenderness, clubbing, pedal edema Neurological exam: PRESENT: alert, awake, CN II-XII grossly intact. ABSENT: motor sensory deficit Psychiatric exam: PRESENT: agitated, normal mood. ABSENT: homicidal ideation, suicidal ideation Skin exam: PRESENT: dry, intact, warm. ABSENT: cyanosis, rash Results Laboratory Results: 01/03/19 04:03 01/03/19 04:03 01/02/19 01/02/19 01/03/19 10:49 15:22 04:03 WBC 10.1 RBC 3.89 L Hgb 13.3 L Hct 38.4 MCV 99 H MCH 34.3 H MCHC 34.7 RDW 12.9 Plt Count 179 Sodium Potassium Chloride Carbon Dioxide Anion Gap BUN Creatinine Est GFR ( Amer) Glucose Calcium Magnesium 1.4 L Total Bilirubin AST Alkaline Phosphatase Ammonia < 8.7 L Total Protein Albumin 01/03/19 04:03 WBC RBC Hgb Hct MCV MCH MCHC RDW Plt Count Sodium 134.9 L Potassium 4.2 Chloride 101 Carbon Dioxide 26 Anion Gap 8 BUN 17 Creatinine 0.93 Est GFR ( Amer) > 60 Glucose 241 H Calcium 8.9 Magnesium Total Bilirubin 0.5 AST 28 Alkaline Phosphatase 63 Ammonia Total Protein 5.8 L Albumin 3.4 L 01/02/19 01/02/19 10:49 10:49 Creatine Kinase 309 H CK-MB (CK-2) 3.83 Troponin I < 0.012 Impressions: Chest/Abdomen CTA 01/02/19 00:00 IMPRESSION: No emboli visualized in the main pulmonary arteries or the segmental branches.No consolidation or pleural effusions. Minimal right lower lobe basilar subsegmental atelectasis. Scattered subpleural interstitial c hanges. Chest X-Ray 01/02/19 10:32 IMPRESSION: Low inspiratory lung volumes without a superimposed acute cardiopulmonary process. Head CT 01/02/19 12:06 IMPRESSION: No acute intracranial abnormality. EVIDENCE OF ACUTE STROKE: NO. Assessment and Plan - Diagnosis (1) Hyperglycemia due to type 2 diabetes mellitus Qualifiers: Diabetes mellitus extermination inspector insulin use: without extermination inspector use Qualified Code(s): E11.65 - Type 2 diabetes mellitus with hyperglycemia Is this a current diagnosis for this admission?: Yes Plan: A1c >14% Consistent carb diet. Accu-Cheks before meals and at bedtime with Humalog for sliding scale coverage. Hypoglycemia protocol in place. Start Lantus 10 units daily Registered dietitian and asthma educator consulted. (2) Hyponatremia Is this a current diagnosis for this admission?: Yes Plan: Improved. Patient received a 1 L normal saline bolus by the ED provider. We will continue gentle IV fluids. Follow-up chemistry. (3) Hypomagnesemia Is this a current diagnosis for this admission?: Yes Plan: Likely secondary to alcohol abuse and recent poor p.o. intake. Magnesium 1.4. Have replaced with IV magnesium. Follow up labs. (4) Alcohol dependence Qualifiers: Substance use status: in withdrawal Complication of substance-induced condition: with unspecified complication Qualified Code(s): F10.239 - Alcohol dependence with withdrawal, unspecified Is this a current diagnosis for this admission?: Yes Plan: The patient and roommate confirm the patient drinks a half a bottle of vodka daily. He discontinued drinking 3 days ago due to generalized malaise. He presents with hyponatremia, hypomagnesemia, increased confusion, and frequent falls. We will replace magnesium. IV banana bag nightly. Scheduled Valium. Discussed w/ nursing; will hold prn ativan as it is possible the patient's behavior is his baseline and not evidence of withdrawal and the provided Ativan has resulted in sedation. Will observe for objective evidence of withdrawal (diaphoresis, tremulousness, tachycardia, hypertension). Nursing asked to call for as needed dosing if noted. PRN IV hydralazine as needed for acute agitation. Discharge planning is consulted. Fall and seizure precautions. (5) Frequent falls Is this a current diagnosis for this admission?: Yes Plan: Multifactorial secondary to alcohol dependence with withdrawal, chronic respiratory failure with oxygen dependence and noncompliance, hyperglycemia resulting in polydipsia/polyuria (impulsive behavior related to need to urinate ). Head CT is negative for acute findings. 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 Fall risk. PT/OT consulted. Orthostatic blood pressures qshift. Patient and friend adamantly denies syncopal/presyncopal symptoms prior to his falls. Denies loss of consciousness. Therefore we will hold on obtaining echocardiogram at this time. Management of disease specific conditions as above. (6) Chronic respiratory failure Qualifiers: Respiratory failure complication: hypoxia Qualified Code(s): J96.11 - Chronic respiratory failure with hypoxia Is this a current diagnosis for this admission?: Yes Plan: Secondary to COPD. Chest imaging is negative for acute processes. ABG pending Patient reports that he utilizes home O2 at 4 L/min and CPAP at home. We will continue supplemental oxygen as needed. CPAP nightly. As needed nebulizer treatments. No indications for antibiotic or steroid therapy at this time. (7) Tobacco dependence Is this a current diagnosis for this admission?: Yes Plan: Smoking cessation encouraged. Nicotine or placement therapies provided. (8) Acute encephalopathy Is this a current diagnosis for this admission?: Yes Plan: Unclear etiology; alcohol withdrawal versus medication reaction versus baseline behavior as the patient's significant other reports several years of violent outburst. Next We will obtain ABG to assess for hypercapnia or hypoxia. CTA chest was negative for acute findings. Ammonia was normal. No indications of infectious process at this time. Electrolytes have normalized. UDS negative. Supportive care. Fall precautions. - Time Time Spent with patient: 35 or more minutes Medications reviewed and adjusted accordingly: Yes Anticipated discharge: Home
[2019-01-03 16:23] LABS: ARTERIAL BLOOD BASE EXCESS -1.5 mmol/L; ARTERIAL BLOOD HCO3 23.3 mmol/L (20-24); ARTERIAL BLOOD O2 SATURATION 96.4 % (94-98); ARTERIAL BLOOD PCO2 39.8 mmHg (35-45); ARTERIAL BLOOD PH 7.39 (7.35-7.45); ARTERIAL BLOOD PO2 86.1 mmHg (80-100); ARTERIAL BLOOD TOTAL CO2 24.6 mmol/L (23-27)
[2019-01-03 16:27] LABS: ARTERIAL BLOOD FIO2 36%
[2019-01-03] MEDS: NORMAL SALINE 1000 ML 1,000 ML with POTASSIUM CHLORIDE 20 MEQ, MAGNESIUM SULFATE 8 MEQ,... IV SCH ×5 (17:40)
[2019-01-03] MEDS: DIAZEPAM 5 MG TABLET PO PRN (21:12)
[2019-01-03] MEDS: SIMVASTATIN 40 MG TABLET PO SCH (21:12)
[2019-01-04] MEDS: LORAZEPAM INJ 2 MG/1 ML VIAL IV PRN (00:29)
[2019-01-04] MEDS: IPRATROPIUM/ALBUTEROL 0.5-2.5 MG/3 ML AMPUL NEB SCH ×4 (02:32→19:34)
[2019-01-04] MEDS: DIAZEPAM 5 MG TABLET PO PRN (03:10)
[2019-01-04] MEDS: HEPARIN SOD (PORCINE) 5,000 UNIT/ML 1 ML VIAL SUBCUT SCH ×3 (05:18→22:06)
[2019-01-04] MEDS: LEVOTHYROXINE SODIUM 0.075 MG TABLET PO SCH (05:18)
[2019-01-04] MEDS: HALOPERIDOL LACTATE INJ 5 MG/1 ML VIAL IV PRN (05:18)
[2019-01-04] MEDS: INSULIN LISPRO 100 UNIT/ML 3 ML VIAL SUBCUT SCH ×4 (08:37→22:05)
[2019-01-04] MEDS: PANTOPRAZOLE SODIUM 20 MG TABLET.DR PO SCH (08:37)
[2019-01-04] MEDS: LOSARTAN POTASSIUM 50 MG TABLET PO SCH (10:27)
[2019-01-04] MEDS: LACTULOSE SYRUP 20 GM/30 ML UDCUP PO SCH (10:27)
[2019-01-04] MEDS: ASPIRIN 81 MG TABLET, ENT COATED PO SCH (10:28)
[2019-01-04] MEDS: LORATADINE 10 MG TABLET PO SCH (10:28)
[2019-01-04] MEDS: FLUTICASONE/VILANTEROL 200-25 MCG/DOSE IH SCH (10:28)
[2019-01-04] MEDS: METOPROLOL SUCCINATE 50 MG TAB.SR.24H PO SCH ×2 (10:28→22:06)
[2019-01-04] MEDS: NICOTINE 21 MG/24 HR PATCH.TD24 TD SCH (10:29)
[2019-01-04] MEDS: INSULIN GLARGINE,HUM.REC.ANLOG 1,000 UNIT/10 ML VIAL SUBCUT SCH (10:29)
[2019-01-04] MEDS: FLUTICASONE NASAL SPRAY 50 MCG/SPRY 120 SPRAY/16 GM NASL SCH ×2 (10:29→22:06)
--- NOTE | 2019-01-04 15:49 | PSYCHOLOGICAL NOTE ---
Psych Note - Psych Note Date seen by psych provider: 01/04/19 Time seen by psych provider: 14:00 Psych Note: Reason for Consult: aggressive behaviour/ alcohol abuse Patient reports that he only drinks occasionally however then discloses that he drinks only 2-3 drinks at night. He states he does not drink beer or wine however will drink vodka and whiskey. Patient states he has not had anything to drink in 3 to 4 days however denies any difficulties with his withdrawal. Patient states that he does not think about going to the liquor store or wishing that he had a drink. Patient started to become very agitated and stated that he did not understand why he was speaking with clinician since he was sent from the [place] to [facility] for medical concerns. He states that last night they put him in restraints because "me in the little girls were not getting along." He continued to report that if they had just left him "the hell alone" it would be fine and stated the clinician was "doing the same thing" and confirms he is getting irritated. He feels that people come in and asking him the same questions over and over and requested the clincian to share the information so he did not have to answer them again. Patient is currently alert and orientated to person, place, time and circumstance. Mood is irritable with congruent affect. Patient denies suicidal and homicidal ideation. Delusions are absent behaviors congruent with an intact reality based presentation. Eye contact is poor. Conversational speech clearly communicates his irritability. Intellectual ability appears to be within the average range. Attention and concentration are is fair. Insight, judgment, impulse control is fair. Alcohol withdrawal Medication recommendations per [facility]'s contracted psychiatrist Dr. Lianna MARIA are as follow Please discontinue haldol Depakote 250mg twice daily Buspar 5mg twice daily Clonidine 0.1mg 24 hour transdermal patch Risperdal 0.25mg every morning at 8am and every afternoon at 4pm as needed Impression/Plan: patient is cleared from acute psychiatric services. Patient has a history of alcohol abuse and last night had a behavioral event which required the use of soft restraints. Medication recommendations have been provided to assist with patient's presenting symptoms. Please reconsult if new concerns arise. Dr. Ewing was consulted and the care management of this patient; attending physicians agreement with recommendations and disposition.
[2019-01-04] MEDS: DIVALPROEX SODIUM 250 MG TABLET.DR PO SCH (17:42)
[2019-01-04] MEDS: RISPERIDONE 0.25 MG TABLET PO SCH (17:43)
[2019-01-04] MEDS ORDERED: CLONIDINE 0.1 MG/24 HR PATCH.TDWK TD SCH (18:00)
[2019-01-04] MEDS ORDERED: MULTIVITAMIN TABLET PO SCH (18:00)
[2019-01-04] MEDS ORDERED: THIAMINE HCL 100 MG TABLET PO SCH (18:00)
[2019-01-04] MEDS ORDERED: FOLIC ACID 1 MG TABLET PO SCH (18:00)
[2019-01-04] MEDS: BUSPIRONE HCL 10 MG TABLET PO SCH (22:06)
[2019-01-04] MEDS: SIMVASTATIN 40 MG TABLET PO SCH (22:06)
--- NOTE | 2019-01-04 22:45 | PDOC PROGRESS REPORT ---
Subjective Progress Note for:: 01/04/19 Subjective:: SONYA MONTOYA is a 73 year old male with a past medical history of hypertension, hyperlipidemia, COPD, hypothyroidism, DM 2, GERD, tobacco dependence with continuous use, and alcohol dependence with continuous use who was admitted 01/02/2019 for hyperglycemia, hyponatremia, hypomagnesemia, alcohol dependence, and frequent falls. Patient was seen on morning rounds. He was found resting in bed, on supplemental oxygen via nasal cannula. He was sleeping soundly and would not wake when I said his name or shake his shoulder gently. Per nursing, he has been awake and somewhat agitated this morning though less so than yesterday. He went down to begin after. The patient was somewhat argumentative with staff, but compliant with the recommendations, and now out of soft limb restraints without impulsive behaviors, agitation, or aggression. Per nursing, when he becomes agitated, he redirects well with firm boundaries and instructions. He was able to walk with physical therapy approximately 300 feet; they have signed off. Mental health services were also able to conduct an interview with the patient. At the time of my visit, he was again sleeping, but awoke when I said his name. He was alert and oriented x4. He denied malaise, nausea, poor appetite, or abdominal discomfort (his presenting symptoms). He tells me that he has a good appetite and has enjoyed his meals here. He also asks about his discharge to home. He is advised that we have started a few new medications this afternoon since I would like to watch him overnight, but that he would likely discharge first thing in the morning. He was satisfied with his response and then promptly fell back to sleep. ROS is otherwise negative. No concerns per nursing at this time. Reason For Visit: HYPERGLYCEMIA,ALCOHOL ABUSE,FALLS Physical Exam Vital Signs: Temp Pulse Resp BP Pulse Ox 97.7 F 71 17 131/87 H 100 01/04/19 20:00 01/04/19 20:00 01/04/19 20:00 01/04/19 20:00 01/04/19 20:00 Intake & Output 01/03/19 01/04/19 01/05/19 06:59 06:59 06:59 Intake Total 3622 2846 840 Output Total 850 500 750 Balance 2772 2346 90 Weight 101.3 kg 101.6 kg General appearance: PRESENT: no acute distress, disheveled, obese, well- developed, well-nourished Head exam: PRESENT: atraumatic, normocephalic Eye exam: PRESENT: conjunctiva pink, EOMI, PERRLA. ABSENT: scleral icterus Ear exam: PRESENT: normal external ear exam Mouth exam: PRESENT: moist, tongue midline Teeth exam: PRESENT: poor dentation Respiratory exam: PRESENT: clear to auscultation iram, symmetrical, unlabored. ABSENT: rales, rhonchi, wheezes Cardiovascular exam: PRESENT: RRR, +S1, +S2. ABSENT: diastolic murmur, rubs, systolic murmur Pulses: PRESENT: normal dorsalis pedis pul Vascular exam: PRESENT: normal capillary refill GI/Abdominal exam: PRESENT: normal bowel sounds, soft, other - Rotund. ABSENT: distended, guarding, mass, organolmegaly, rebound, tenderness Rectal exam: PRESENT: deferred Extremities exam: PRESENT: full ROM. ABSENT: calf tenderness, clubbing, pedal edema Musculoskeletal exam: PRESENT: ambulatory Neurological exam: PRESENT: alert, awake, oriented to person, oriented to place, oriented to time, oriented to situation, CN II-XII grossly intact. ABSENT: motor sensory deficit Psychiatric exam: PRESENT: agitated - Intermittently agitated/argumentative; now redirects, appropriate affect, normal mood. ABSENT: homicidal ideation, suicidal ideation Skin exam: PRESENT: dry, intact, warm. ABSENT: cyanosis, rash Results Laboratory Results: 01/03/19 04:03 01/03/19 04:03 01/02/19 01/02/19 10:49 10:49 Creatine Kinase 309 H CK-MB (CK-2) 3.83 Troponin I < 0.012 Impressions: Chest/Abdomen CTA 01/02/19 00:00 IMPRESSION: No emboli visualized in the main pulmonary arteries or the segmental branches.No consolidation or pleural effusions. Minimal right lower lobe basilar subsegmental atelectasis. Scattered subpleural interstitial changes. Chest X-Ray 01/02/19 10:32 IMPRESSION: Low inspiratory lung volumes without a superimposed acute cardiopulmonary process. Head CT 01/02/19 12:06 IMPRESSION: No acute intracranial abnormality. EVIDENCE OF ACUTE STROKE: NO. Assessment and Plan - Diagnosis (1) Hyperglycemia due to type 2 diabetes mellitus Qualifiers: Diabetes mellitus truck terminal manager insulin use: without truck terminal manager use Qualified Code(s): E11.65 - Type 2 diabetes mellitus with hyperglycemia Is this a current diagnosis for this admission?: Yes Plan: A1c >14% Consistent carb diet. Accu-Cheks before meals and at bedtime with Humalog for sliding scale coverage. Hypoglycemia protocol in place. Continue Lantus 10 units daily Registered dietitian and religious educator consulted. (2) Hyponatremia Is this a current diagnosis for this admission?: Yes Plan: Improved; 134.9. Now eating and drinking well; will discontinue IV fluids. Follow-up chemistry. (3) Hypomagnesemia Is this a current diagnosis for this admission?: Yes Plan: Likely secondary to alcohol abuse and recent poor p.o. intake. Magnesium 1.4. Have replaced with IV magnesium. Follow up labs. (4) Alcohol dependence Qualifiers: Substance use status: in withdrawal Complication of substance-induced condition: with unspecified complication Qualified Code(s): F10.239 - Alcohol dependence with withdrawal, unspecified Is this a current diagnosis for this admission?: Yes Plan: The patient and roommate confirm the patient drinks a half a bottle of vodka daily. He discontinued drinking 3 days ago due to generalized malaise. He presents with hyponatremia, hypomagnesemia, increased confusion, and frequent falls. Continue daily multivitamin, thiamine, and folic acid supplementation. PRN IV hydralazine as needed for acute agitation. Discharge planning is consulted. Fall and seizure precautions. (5) Chronic respiratory failure Qualifiers: Respiratory failure complication: hypoxia Qualified Code(s): J96.11 - Chronic respiratory failure with hypoxia Is this a current diagnosis for this admission?: Yes Plan: Secondary to COPD. Chest imaging is negative for acute processes. ABG pending Patient reports that he utilizes home O2 at 4 L/min and CPAP at home. We will continue supplemental oxygen as needed. CPAP nightly. As needed nebulizer treatments. No indications for antibiotic or steroid therapy at this time. (6) Tobacco dependence Is this a current diagnosis for this admission?: Yes Plan: Smoking cessation encouraged. Nicotine or placement therapies provided. (7) Acute encephalopathy Is this a current diagnosis for this admission?: Yes Plan: Resolved. Likely related to medication reaction and patient baseline behavior/personality. ABG was normal. CTA chest was negative for acute findings. Ammonia was normal. No indications of infectious process at this time. Electrolytes have normalized. UDS negative. Discussed with Dr. Rod today; requested his subjective opinion on the patient's behavior and potential for alcohol withdrawal. He advised to discontinuing all benzodiazepine and monitoring closely for tachycardia and hypertension it was provided objective indications of withdrawal. IV Haldol was left in place temporarily until the mental health services could make medication recommendations. Fortunately the patient did not require any additional medications; he is now A&O x4, and although gruff/argumentative, he is compliant with recommendations and follows directions. He has not had any further agitation or aggressive behaviors directed toward staff. Supportive care. Fall precautions. (8) Frequent falls Is this a current diagnosis for this admission?: Yes Plan: Multifactorial secondary to alcohol dependence with withdrawal, chronic respiratory failure with oxygen dependence and noncompliance, hyperglycemia resulting in polydipsia/polyuria (impulsive behavior related to need to urinate). Head CT is negative for acute findings. 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 Fall risk. PT/OT consulted. Orthostatic blood pressures qshift. Patient and friend adamantly denies syncopal/presyncopal symptoms prior to his falls. Denies loss of consciousness. Therefore we will hold on obtaining echo cardiogram at this time. Management of disease specific conditions as above. (9) Behavior concern in adult Is this a current diagnosis for this admission?: Yes Plan: Mental health services were consulted. Have discontinued Valium, IV Ativan, and IV Haldol. Have implemented her medications as recommended by: Depakote, BuSpar, clonidine transdermal patch, and risperidone. - Time Time Spent with patient: 35 or more minutes Medications reviewed and adjusted accordingly: Yes Anticipated discharge: Home Within: within 24 hours
[2019-01-05] MEDS: IPRATROPIUM/ALBUTEROL 0.5-2.5 MG/3 ML AMPUL NEB SCH (01:50)
[2019-01-05 05:56] LABS: HEMATOCRIT 38.5 % (37.9-51.0); HEMOGLOBIN 13.3 g/dL (13.5-17.0); MEAN CORPUSCULAR HEMOGLOBIN 34.3 pg (27.0-33.4); MEAN CORPUSCULAR HGB CONC 34.5 g/dL (32.0-36.0); MEAN CORPUSCULAR VOLUME 99 fl (80-97); PLATELET COUNT 191 10^3/uL (150-450); RED BLOOD COUNT 3.88 10^6/uL (4.35-5.55); RED CELL DISTRIBUTION WIDTH 13.1 % (11.5-14.0); WHITE BLOOD COUNT 7.1 10^3/uL (4.0-10.5)
[2019-01-05] MEDS: LEVOTHYROXINE SODIUM 0.075 MG TABLET PO SCH (06:07)
[2019-01-05] MEDS: HEPARIN SOD (PORCINE) 5,000 UNIT/ML 1 ML VIAL SUBCUT SCH (06:07)
[2019-01-05 06:18] LABS: ANION GAP 5 (5-19); BLOOD UREA NITROGEN 7 mg/dL (7-20); CALCIUM 8.9 mg/dL (8.4-10.2); CARBON DIOXIDE 30 mmol/L (22-30); CHLORIDE 103 mmol/L (98-107); GLUCOSE 210 mg/dL (75-110); POTASSIUM 3.9 mmol/L (3.6-5.0)
[2019-01-05] MEDS: RISPERIDONE 0.25 MG TABLET PO SCH (08:02)
[2019-01-05] MEDS: INSULIN LISPRO 100 UNIT/ML 3 ML VIAL SUBCUT SCH (08:02)
[2019-01-05] MEDS: PANTOPRAZOLE SODIUM 20 MG TABLET.DR PO SCH (08:02)
[2019-01-05 10:02] VITALS: BP 122/52
[2019-01-05] MEDS: LOSARTAN POTASSIUM 50 MG TABLET PO SCH (10:42)
[2019-01-05] MEDS: LORATADINE 10 MG TABLET PO SCH (10:43)
[2019-01-05] MEDS: LACTULOSE SYRUP 20 GM/30 ML UDCUP PO SCH (10:43)
[2019-01-05] MEDS: METOPROLOL SUCCINATE 50 MG TAB.SR.24H PO SCH (10:43)
[2019-01-05] MEDS: BUSPIRONE HCL 10 MG TABLET PO SCH (10:44)
[2019-01-05] MEDS: FLUTICASONE/VILANTEROL 200-25 MCG/DOSE IH SCH (10:44)
[2019-01-05] MEDS: ASPIRIN 81 MG TABLET, ENT COATED PO SCH (10:44)
[2019-01-05] MEDS: DIVALPROEX SODIUM 250 MG TABLET.DR PO SCH (10:44)
[2019-01-05] MEDS: FLUTICASONE NASAL SPRAY 50 MCG/SPRY 120 SPRAY/16 GM NASL SCH (10:45)
[2019-01-05] MEDS: NICOTINE 21 MG/24 HR PATCH.TD24 TD SCH (10:45)
[2019-01-05] MEDS: INSULIN GLARGINE,HUM.REC.ANLOG 1,000 UNIT/10 ML VIAL SUBCUT SCH (11:00)
--- NOTE | 2019-01-06 18:26 | PDOC DISCHARGE SUMMARY ---
Impression - Admit/DC Date/PCP Admission Date/Primary Care Provider: 01/02/19 13:[facility] Discharge Date: 01/05/19 - Discharge Diagnosis (1) Hyperglycemia due to type 2 diabetes mellitus Is this a current diagnosis for this admission?: Yes (2) Hyponatremia Is this a current diagnosis for this admission?: Yes (3) Hypomagnesemia Is this a current diagnosis for this admission?: Yes (4) Alcohol dependence Is this a current diagnosis for this admission?: Yes (5) Chronic respiratory failure Is this a current diagnosis for this admission?: Yes (6) Tobacco dependence Is this a current diagnosis for this admission?: Yes (7) Acute encephalopathy Is this a current diagnosis for this admission?: Yes (8) Frequent falls Is this a current diagnosis for this admission?: Yes (9) Behavior concern in adult Is this a current diagnosis for this admission?: Yes - Additional Information Resuscitation Status: Full Code Discharge Diet: Cardiac, Diabetic Discharge Activity: Activity As Tolerated, Balance Activity w/Rest, Slowly Increase Activity Referrals: [facility] [Primary Care Provider] - 02/26/19 2:30 pm (PT HAS AN APPT ON THE FOLLOWING DAYS FEBRUARY 26, 2019 AT 230PM AT THE [facility] OFFICE MARCH 12, 2019 AT 0930 AT THE [facility] OFF[facility]) Prescriptions: Pen Needle, Diabetic [Advocate Pen Needle] 1 each MC DAILY #30 dis.needle Buspirone HCl [Buspar 10 mg Tablet] 5 mg PO Q12 30 Days tablet Clonidine [Catapres-Tts 1 (0.1 mg/24 Hr) Transderm Patch] 1 each TD Fr@10 #1 patch.tdwk Divalproex Sodium [Depakote Er 250 Mg Tablet] 250 mg PO BID #60 tab.sr.24h Folic Acid [Folvite 1 mg Tablet] 1 mg PO QPM #90 tablet Lantus Pen 100 Units/Ml 10 unit SQ QHS #3 Nicotine [Nicoderm 21 mg/24 Hr Transderm Patch] 1 each TD DAILY #30 patch.td24 Risperidone [Risperdal 0.25 mg Tablet] 0.25 mg PO BID@0800,1600 #60 tablet Multivitamin [Tab-A-Shauna (Multiple Vitamin) Tablet] 1 tab PO QPM #90 tablet Thiamine HCl [Thiamine 100 mg Tablet] 100 mg PO QPM #90 tablet Metoprolol Succinate [Toprol Xl 50 mg Tab.sr] 50 mg PO Q12 #60 tab.sr.24h Home Medications: Aspirin [Ecotrin 81 mg EC Tablet] 81 mg PO DAILY 01/02/19 Bisacodyl [Dulcolax 5 mg Tablet] 10 mg PO QHS 01/02/19 Budesonide/Formoterol Fumarate [Symbicort HFA 160-4.5 mcg Inhaler 6 gm] 2 puff IH DAILY 01/02/19 Cyanocobalamin (Vitamin B-12) [Vitamin B-12 1000 mcg Tablet] 500 mcg PO DAILY 01/02/19 Fluticasone Propionate [Flonase Nasal Morrison 50 Mcg/Morrison 16 gm] 2 sprays NASL Q12 01/02/19 Hydrocortisone Acetate [Anusol Hc 25 mg Supp.rect] 25 mg SC DAILYP PRN 01/02/19 Ipratropium/Albuterol Sulfate [Combivent Respimat 4 gm Mdi] 1 puff IH Q6 01/02/19 Lactulose [Constulose 10 gm/15 mL Oral Solution] 10 ml PO DAILY 01/02/19 Levothyroxine Sodium [Synthroid 0.075 mg Tablet] 0.075 mg PO Q6AM 01/02/19 Loratadine [Claritin 10 mg Tablet] 10 mg PO DAILY 01/02/19 Losartan Potassium [Cozaar 100 mg Tablet] 100 mg PO DAILY 01/02/19 Metformin HCl [Glucophage 500 mg Tablet] 500 mg PO QAM 01/02/19 Metoprolol Tartrate [Lopressor 100 mg Tablet] 100 mg PO Q12 01/02/19 Poca-3 Fatty Acids/Fish Oil [Fish Oil 1,000 mg Capsule] 2 each PO BID 01/02/19 Omeprazole 20 mg PO DAILY 01/02/19 Simvastatin [Zocor 80 mg Tablet] 40 mg PO QHS 01/02/19 Triamcinolone Acetonide [Aristocort 0.1% Cream] 1 applic TP BIDP PRN 01/02/19 Urea [Carmol 20% Cream 85 gm] 1 applic TP BIDP PRN 01/02/19 Acetaminophen [Tylenol 325 mg Tablet] 650 mg PO Q4HP PRN tablet 01/05/19 Buspirone HCl [Buspar 10 mg Tablet] 5 mg PO Q12 30 Days tablet 01/05/19 Clonidine [Catapres-Tts 1 (0.1 mg/24 Hr) Transderm Patch] 1 each TD Fr@10 #1 patch.tdwk 01/05/19 Divalproex Sodium [Depakote Er 250 Mg Tablet] 250 mg PO BID #60 tab.sr.24h 01/05/19 Folic Acid [Folvite 1 mg Tablet] 1 mg PO QPM #90 tablet 01/05/19 Lantus Pen 100 Units/Ml 10 unit SQ QHS #3 01/05/19 Metoprolol Succinate [Toprol Xl 50 mg Tab.sr] 50 mg PO Q12 #60 tab.sr.24h 01/05/19 Multivitamin [Tab-A-Shauna (Multiple Vitamin) Tablet] 1 tab PO QPM #90 tablet 01/05/19 Nicotine [Nicoderm 21 mg/24 Hr Transderm Patch] 1 each TD DAILY #30 patch.td24 01/05/19 Pen Needle, Diabetic [Advocate Pen Needle] 1 each MC DAILY #30 dis.needle 01/05/19 Risperidone [Risperdal 0.25 mg Tablet] 0.25 mg PO BID@0800,1600 #60 tablet 01/05/19 Thiamine HCl [Thiamine 100 mg Tablet] 100 mg PO QPM #90 tablet 01/05/19 History of Present Illiness History of Present Illness: SONYA MONTOYA is a 73 year old male with a past medical history of hypertension, hyperlipidemia, COPD, hypothyroidism, DM 2, GERD, tobacco dependence with continuous use, and alcohol dependence with continuous use who presented to the emergency department today with a complaint of increased frequency of falls. He reports that he fell 3 times yesterday, without syncope or injury, and then again at his PCPs office today which prompted his referral to the emergency department. Patient does report that he has had 3 days of decreased appetite, generalized malaise, polydipsia, polyuria, and increased blood sugars. He reports that due to his feeling unwell, he also ceased drinking alcohol 3 days ago. Evaluation in the emergency department demonstrated sinus bradycardia, hypertension, mild leukocytosis, elevated d-dimer, hyponatremia (128) NEGIN, hyperglycemia (624) elevated lactic acid (2.2), unremarkable urinalysis and UDS. Head CT was negative for acute findings. Chest x-ray was benign. CT of the chest was negative for pulmonary embolus. He was referred to the hospital service for admission and management of the above-stated complaints and findings. Hospital Course Hospital Course: The patient was admitted to the medical floor on continuous cardiac telemetry. While in the emergency department, the patient was noted to have multiple episodes of bradycardia into the mid 40s. Therefore, his metoprol dose was decreased to Toprol-XL 50 mg twice daily. He remained in sinus rhythm with a heart rate of 50-80 thereafter. His blood pressure remained acceptable with the addition of the clonidine patch as recommended by the mental health services. His A1c was greater than 14% so he was started on Lantus 10 units nightly. The patient was provided IV fluids; his electrolytes were monitored and replaced as necessary. There was some initial concern that the patient may be exhibiting evidence of alcohol withdrawal; therefore he was provided scheduled Valium and Ativan. Unfortunately, the patient demonstrated increased agitated/combativeness. Mental health services were consulted; their medication recommendations were implemented. Valium, Ativan, and Haldol were discontinued. Patient was started on Depakote, BuSpar, clonidine transdermal patch, and risperidone. The following day, the patient was noted to be alert and oriented x4, conversational, socially appropriate, compliant with medications, and pleasant to staff members. He reported that he was feeling well and was requesting to be discharged home. At time of discharge, the patient was in stable condition, tolerating a consistent carb diet with adequately controlled blood sugars, and independently ambulatory. He was discharged home with home health [facility] services to assist with medication education/management as the patient will now be on Lantus in addition to his home dose metformin. He was instructed to follow-up with his primary care provider within 1 week. He is instructed to take an consistent carb/cardiac diet and to drink plenty of water. He is advised to take his medications as prescribed. He is encouraged to return to emergency department as needed for concerning symptoms. Physical Exam Vital Signs: Temp Pulse Resp BP Pulse Ox 98.0 F 58 L 17 122/52 L 97 01/05/19 11:23 01/05/19 11:23 01/05/19 11:23 01/05/19 11:23 01/05/19 11:23 Intake & Output 01/05/19 01/06/19 01/07/19 06:59 06:59 06:59 Intake Total 1480 Output Total 1950 Balance -470 Weight 100.7 kg General appearance: PRESENT: no acute distress, cooperative, disheveled, obese, well-developed, well-nourished Head exam: PRESENT: atraumatic, normocephalic Eye exam: PRESENT: conjunctiva pink, EOMI, PERRLA. ABSENT: scleral icterus Ear exam: PRESENT: normal external ear exam Mouth exam: PRESENT: moist, tongue midline Respiratory exam: PRESENT: clear to auscultation iram, symmetrical, unlabored. ABSENT: rales, rhonchi, wheezes Cardiovascular exam: PRESENT: RRR, +S1, +S2. ABSENT: diastolic murmur, rubs, systolic murmur Pulses: PRESENT: normal dorsalis pedis pul Vascular exam: PRESENT: normal capillary refill GI/Abdominal exam: PRESENT: normal bowel sounds, soft. ABSENT: distended, guarding, mass, organolmegaly, rebound, tenderness Rectal exam: PRESENT: deferred Extremities exam: PRESENT: full ROM. ABSENT: calf tenderness, clubbing, pedal edema Musculoskeletal exam: PRESENT: ambulatory Neurological exam: PRESENT: alert, awake, oriented to person, oriented to place, oriented to time, oriented to situation, CN II-XII grossly intact. ABSENT: motor sensory deficit Psychiatric exam: PRESENT: appropriate affect, normal mood. ABSENT: homicidal ideation, suicidal ideation Skin exam: PRESENT: dry, intact, warm. ABSENT: cyanosis, rash Results Laboratory Results: WBC 7.1 10^3/uL (4.0-10.5) 01/05/19 05:10 RBC 3.88 10^6/uL (4.35-5.55) L 01/05/19 05:10 Hgb 13.3 g/dL (13.5-17.0) L 01/05/19 05:10 Hct 38.5 % (37.9-51.0) 01/05/19 05:10 MCV 99 fl (80-97) H 01/05/19 05:10 MCH 34.3 pg (27.0-33.4) H 01/05/19 05:10 MCHC 34.5 g/dL (32.0-36.0) 01/05/19 05:10 RDW 13.1 % (11.5-14.0) 01/05/19 05:10 Plt Count 191 10^3/uL (150-450) 01/05/19 05:10 Lymph % (Auto) 25.5 % (13-45) 01/02/19 10:49 [place] % (Auto) 6.8 % (3-13) 01/02/19 10:49 Eos % (Auto) 1.8 % (0-6) 01/02/19 10:49 Baso % (Auto) 0.5 % (0-2) 01/02/19 10:49 Absolute Neuts (auto) 7.1 10^3/uL (1.7-8.2) 01/02/19 10:49 Absolute Lymphs (auto) 2.7 10^3/uL (0.5-4.7) 01/02/19 10:49 Absolute Monos (auto) 0.7 10^3/uL (0.1-1.4) 01/02/19 10:49 Absolute Eos (auto) 0.2 10^3/uL (0.0-0.6) 01/02/19 10:49 Absolute Basos (auto) 0.1 10^3/uL (0.0-0.2) 01/02/19 10:49 Seg Neutrophils % 65.4 % (42-78) 01/02/19 10:49 PT 12.6 SEC (11.4-15.4) 01/02/19 10:49 INR 0.95 01/02/19 10:49 D-Dimer 0.72 ug/mL (0.00-0.50) H 01/02/19 10:49 Carbonic Acid 1.20 mmol/L (1.05-1.35) 01/03/19 16:05 HCO3/H2CO3 Ratio 19:1 01/03/19 16:05 ABG pH 7.39 (7.35-7.45) 01/03/19 16:05 ABG pCO2 39.8 mmHg (35-45) 01/03/19 16:05 ABG pO2 86.1 mmHg (80-100) 01/03/19 16:05 ABG HCO3 23.3 mmol/L (20-24) 01/03/19 16:05 ABG Total CO2 24.6 mmol/L (23-27) 01/03/19 16:05 ABG O2 Saturation 96.4 % (94-98) 01/03/19 16:05 ABG Base Excess -1.5 mmol/L 01/03/19 16:05 FiO2 36% 01/03/19 16:05 Sodium 138.3 mmol/L (137-145) 01/05/19 05:10 Potassium 3.9 mmol/L (3.6-5.0) 01/05/19 05:10 Chloride 103 mmol/L (98-107) 01/05/19 05:10 Carbon Dioxide 30 mmol/L (22-30) 01/05/19 05:10 Anion Gap 5 (5-19) 01/05/19 05:10 BUN 7 mg/dL (7-20) 01/05/19 05:10 Creatinine 0.84 mg/dL (0.52-1.25) 01/05/19 05:10 Est GFR ( Amer) > 60 (>60) 01/05/19 05:10 Est GFR (MDRD) Non-Af > 60 (>60) 01/05/19 05:10 Glucose 210 mg/dL (75-110) H 01/05/19 05:10 POC Glucose 213 mg/dL (70-110) H 01/05/19 06:28 Hemoglobin A1c % > 14.0 % (4.7-6.0) H 01/03/19 04:03 Lactic Acid (Sepsis) 2.0 mmol/L (0.7-2.1) 01/02/19 19:24 Calcium 8.9 mg/dL (8.4-10.2) 01/05/19 05:10 Magnesium 1.6 mg/dL (1.6-2.3) 01/05/19 05:10 Total Bilirubin 0.5 mg/dL (0.2-1.3) 01/03/19 04:03 Direct Bilirubin 0.1 mg/dL (0.0-0.4) 01/03/19 04:03 Neonat Total Bilirubin Not Reportable 01/03/19 04:03 Neonat Direct Bilirubin Not Reportable 01/03/19 04:03 Neonat Indirect Bili Not Reportable 01/03/19 04:03 AST 28 U/L (17-59) 01/03/19 04:03 ALT 25 U/L (<50) 01/03/19 04:03 Alkaline Phosphatase 63 U/L (38-126) 01/03/19 04:03 Ammonia < 8.7 umol/L (9-33) L 01/02/19 15:22 Creatine Kinase 309 U/L (55-170) H 01/02/19 10:49 CK-MB (CK-2) 3.83 ng/mL (<4.55) 01/02/19 10:49 Troponin I < 0.012 ng/mL 01/02/19 10:49 Total Protein 5.8 g/dL (6.3-8.2) L 01/03/19 04:03 Albumin 3.4 g/dL (3.5-5.0) L 01/03/19 04:03 Urine Color STRAW 01/02/19 10:33 Urine Appearance CLEAR 01/02/19 10:33 Urine pH 7.0 (5.0-9.0) 01/02/19 10:33 Ur Specific Wells 1.028 01/02/19 10:33 Urine Protein NEGATIVE mg/dL (NEGATIVE) 01/02/19 10:33 Urine Glucose (UA) >=500 mg/dL (NEGATIVE) H 01/02/19 10:33 Urine Ketones NEGATIVE mg/dL (NEGATIVE) 01/02/19 10:33 Urine Blood NEGATIVE (NEGATIVE) 01/02/19 10:33 Urine Nitrite NEGATIVE (NEGATIVE) 01/02/19 10:33 Urine Bilirubin NEGATIVE (NEGATIVE) 01/02/19 10:33 Urine Urobilinogen NEGATIVE mg/dL (<2.0) 01/02/19 10:33 Ur Leukocyte Esterase NEGATIVE (NEGATIVE) 01/02/19 10:33 Urine WBC (Auto) 1 /HPF 01/02/19 10:33 Urine RBC (Auto) 0 /HPF 01/02/19 10:33 Urine Ascorbic Acid NEGATIVE (NEGATIVE) 01/02/19 10:33 Urine Opiates Screen NEGATIVE 01/02/19 10:33 Urine Methadone Screen NEGATIVE 01/02/19 10:33 Ur Barbiturates Screen NEGATIVE 01/02/19 10:33 Ur Phencyclidine Scrn NEGATIVE 01/02/19 10:33 Ur Amphetamines Screen NEGATIVE 01/02/19 10:33 U Benzodiazepines Scrn NEGATIVE 01/02/19 10:33 Urine Cocaine Screen NEGATIVE 01/02/19 10:33 U Marijuana (THC) Screen NEGATIVE 01/02/19 10:33 01/02/19 10:49 CK-MB (CK-2) 3.83 Troponin I < 0.012 Impressions: Chest/Abdomen CTA 01/02/19 00:00 IMPRESSION: No emboli visualized in the main pulmonary arteries or the segmental branches.No consolidation or pleural effusions. Minimal right lower lobe basilar subsegmental atelectasis. Scattered subpleural interstitial changes. Chest X-Ray 01/02/19 10:32 IMPRESSION: Low inspiratory lung volumes without a superimposed acute cardiopulmonary process. Head CT 01/02/19 12:06 IMPRESSION: No acute intracranial abnormality. EVIDENCE OF ACUTE STROKE: NO. Plan Plan of Treatment: Patient is discharged home in stable condition. He is advised to follow-up with his primary care provider within 1 week. He is instructed to eat a consistent carb/cardiac diet and to take his medications as prescribed. He is encouraged to return to emergency department as needed for concerning symptoms. Time Spent: Greater than 30 Minutes Stroke Is this a Stroke Patient?: No Acute Heart Failure - Is this a Heart Failure Patient?: No
== END 2019-01-05 11:54 | disposition home health service (06) ==
LOC: ER 10:15 → INTOOBSV 13:33 → EH 13:33 → 4N 17:38
PROVIDERS: ADMIT Internal Medicine; ATTEND Internal Medicine
DX: E11.65 Type 2 diabetes mellitus with hyperglycemia (principal); E87.1 Hypo-osmolality and hyponatremia; E83.42 Hypomagnesemia; F10.239 Alcohol dependence with withdrawal, unspecified; G93.40 Encephalopathy, unspecified; R29.6 Repeated falls; F17.210 Nicotine dependence, cigarettes, uncomplicated; I10 Essential (primary) hypertension; F69 Unspecified disorder of adult personality and behavior; D72.829 Elevated white blood cell count, unspecified; R00.1 Bradycardia, unspecified; N17.9 Acute kidney failure, unspecified; R74.0 Nonspecific elevation of levels of transaminase and lactic acid dehydrogenase [LDH]; R45.1 Restlessness and agitation; F91.8 Other conduct disorders; E66.9 Obesity, unspecified; R79.89 Other specified abnormal findings of blood chemistry; I25.10 Atherosclerotic heart disease of native coronary artery without angina pectoris; J96.11 Chronic respiratory failure with hypoxia; M19.90 Unspecified osteoarthritis, unspecified site; R55 Syncope and collapse; Z91.19 Patient's noncompliance with other medical treatment and regimen; Z78.1 Physical restraint status; Z79.899 Other long term (current) drug therapy; Z79.84 Long term (current) use of oral hypoglycemic drugs; Z79.82 Long term (current) use of aspirin; Z85.46 Personal history of malignant neoplasm of prostate; Z85.828 Personal history of other malignant neoplasm of skin
CPT/HCPCS: 93005; 99285; 36415 ×3; 82553; 82962 ×4; 82140; 82803; 82550; 83735 ×2; 85025; 85027 ×2; 85610; 80048; 80053 ×2; 81001; 84484; 80307; 83036; 85379; 83605; 71045; 70450; 71275; 93010; 36600; 94660 ×3; 94640 ×3; 97116; 97161; G0378 ×5; J1815 ×7; J1644 ×4; J1630 ×3; J3475 ×3; J2060 ×3; J3480 ×2; J3411 ×2; J3490 ×9; J7030 ×2; J7620 ×3

== ENCOUNTER 2019-07-31 09:31 | Day surgery (SDC) | payer MEDICARE, OTHER ==
[~2019-07-31 09:31] MED LIST changes: +CHONDR SU A NA/HYALUR INTRAOC KIT (SURGICARE) ONE; +EPINEPHRINE INJ/PF 1 MG/1 ML AMPULE ONE; +KETOROLAC TROMETHAMINE 0.45% 4 DROP/0.4 ML DROPERETTE OS PRN; +LIDOCAINE 1%/PHENYLEPHRINE 1.5% 1 ML VIAL ONE; -PROPOFOL INJ 200 MG/20 ML VIAL IV ONE
[2019-07-31] MEDS ORDERED: MIDAZOLAM 2 MG/2 ML INJ ONE (09:38)
[2019-07-31] MEDS ORDERED: ONDANSETRON HCL INJ/PF 4 MG/2 ML SDV ONE (09:38)
[2019-07-31] MEDS ORDERED: FENTANYL CITRATE INJ/PF 100 MCG/2 ML AMPUL ONE (09:39)
[2019-07-31] MEDS: CYCLOPENTOLATE 0.2%/PHENYLEPHRINE 1% OPH SOLN 2 ML OS PRN ×3 (10:23→10:38)
[2019-07-31] MEDS: TETRACAINE HCL 0.5% OPH SOLN 4 ML OS PRN ×3 (10:23→10:45)
[2019-07-31] MEDS: BESIFLOXACIN HCL 0.6% OPH SUSP 5 ML BOTTLE OS PRN ×4 (10:24→11:00)
[2019-07-31] MEDS: TROPICAMIDE 1% OPH SOLN 15 ML OS PRN ×3 (10:24→10:39)
[2019-07-31] MEDS: DORZOLAMIDE HCL 2%/TIMOLOL MALEAT 0.5% OPH SOLN 10 ML OS PRN ×2 (11:00)
--- NOTE | 2019-07-31 11:42 | Operative Report ---
Operative Report-[facility] Operative Report: DATE OF SURGERY: July 31, 2019 PREOPERATIVE DIAGNOSIS: NUCLEAR CATARACT, LEFT EYE. POSTOPERATIVE DIAGNOSIS: NUCLEAR CATARACT, LEFT EYE. PROCEDURE PERFORMED: PHACOEMULSIFICATION WITH POSTERIOR CHAMBER INTRAOCULAR LENS IMPLANT, LEFT EYE. SURGEON: David Landaverde DO MEDICATIONS AND ANESTHESIA: Versed: IV Versed Tetracaine drops: 1 to 2 drops given as needed COMPLICATION: None INDICATIONS FOR SURGERY: Medical necessity: Best corrected visual acuity worse than 20/40 secondary to cataracts with impairment of ability to carry out needs or desired activities, blurred vision, visual distortion, reduced contrast sensitivity and/or glare with association functional impairment and supporting documentation/testing, and cataracts causing symptomatic impairment of visual functions not corrected with tolerable changes in glasses or contact lenses interfering with activities of daily life. PROCEDURE: Consent: The risks, benefits and alternatives of this procedures was discussed with the patient. The patient read and signed the consent forms, was identified and was seated in the exam chair. IOL: MX 60 E 21.0 IOL Diopters: Phacoemulsification with posterior chamber intraocular lens implant: The face was prepped with 5% povidone iodine solution, and a few drops of 5% povidone iodine solution was instilled into the inferior fornix. A non-fenestrated drape was placed over the eye and the lids were parted with the speculum. A paracentesis was made with a 15 degree blade, and 1% lidocaine MPF followed by viscoelastic was injected into the anterior chamber. A 2.4 mm metal micro- keratome was used to create a temporal clear corneal incision. A circular anterior capsulorrhexis was created, followed by hydro-dissection and hydro- delineation. The phacoemulsification hand piece was inserted and the nucleus was removed with the Phaco chop technique. The irrigation-aspiration hand piece was used to remove the residual cortex, and vacuum the posterior capsule. The capsular bag was inflated and viscoelastic and the above-mentioned IOL was injected into the eye with care to insert both leaning and trailing haptics in the capsular bag. The irrigation/aspiration hand piece was reinserted to remove residual viscoelastic from the capsular bag and anterior chamber. The corneal incision was hydrated, and anterior chamber was inflated with sterile BSS via the paracentesis site, and found to be watertight. Postop medication:1 drop of prednisolone into operative by followed by 1 drop of Cosopt into operative eye followed by 1 drop of Besivance intraoperative by Other:
== END 2019-07-31 11:37 | disposition home or self-care (01) ==
LOC: SC 09:31
PROVIDERS: ATTEND Ophthalmology
DX: H25.12 Age-related nuclear cataract, left eye (principal); J44.9 Chronic obstructive pulmonary disease, unspecified; E11.9 Type 2 diabetes mellitus without complications; I10 Essential (primary) hypertension; E78.00 Pure hypercholesterolemia, unspecified; E07.9 Disorder of thyroid, unspecified; F17.210 Nicotine dependence, cigarettes, uncomplicated; G47.33 Obstructive sleep apnea (adult) (pediatric); E66.9 Obesity, unspecified; Z79.899 Other long term (current) drug therapy; Z79.82 Long term (current) use of aspirin; Z99.81 Dependence on supplemental oxygen; Z91.040 Latex allergy status; Z86.73 Personal history of transient ischemic attack (TIA), and cerebral infarction without residual deficits; Z79.84 Long term (current) use of oral hypoglycemic drugs
CPT/HCPCS: 66984; 82962; V2632; J2250; J3490 ×2; J0171; J3010; J2405; 142

== ENCOUNTER 2019-08-14 08:51 | Day surgery (SDC) | payer MEDICARE, OTHER ==
[~2019-08-14 08:51] MED LIST changes: +KETOROLAC TROMETHAMINE 0.45% 4 DROP/0.4 ML DROPERETTE OD PRN; -KETOROLAC TROMETHAMINE 0.45% 4 DROP/0.4 ML DROPERETTE OS PRN
[2019-08-14] MEDS: TETRACAINE HCL 0.5% OPH SOLN 4 ML OD PRN ×3 (09:33→09:52)
[2019-08-14] MEDS: BESIFLOXACIN HCL 0.6% OPH SUSP 5 ML BOTTLE OD PRN ×4 (09:33→10:09)
[2019-08-14] MEDS: CYCLOPENTOLATE 0.2%/PHENYLEPHRINE 1% OPH SOLN 2 ML OD PRN ×3 (09:33→09:42)
[2019-08-14] MEDS: TROPICAMIDE 1% OPH SOLN 15 ML OD PRN ×3 (09:33→09:42)
[2019-08-14] MEDS ORDERED: FENTANYL CITRATE INJ/PF 100 MCG/2 ML AMPUL ONE (09:39)
[2019-08-14] MEDS ORDERED: MIDAZOLAM 2 MG/2 ML INJ ONE (09:39)
[2019-08-14] MEDS: DORZOLAMIDE HCL 2%/TIMOLOL MALEAT 0.5% OPH SOLN 10 ML OD PRN ×2 (10:09)
--- NOTE | 2019-08-14 10:20 | Operative Report ---
Operative Report-[facility] Operative Report: DATE OF SURGERY: August 14, 2019 PREOPERATIVE DIAGNOSIS: NUCLEAR CATARACT, RIGHT EYE. POSTOPERATIVE DIAGNOSIS: NUCLEAR CATARACT, RIGHT EYE. PROCEDURE PERFORMED: PHACOEMULSIFICATION WITH POSTERIOR CHAMBER INTRAOCULAR LENS IMPLANT, RIGHT EYE. SURGEON: David Landaverde DO MEDICATIONS AND ANESTHESIA: Versed: IV Versed Tetracaine drops: 1 to 2 drops given as needed COMPLICATION: None INDICATIONS FOR SURGERY: Medical necessity: Best corrected visual acuity worse than 20/40 secondary to cataracts with impairment of ability to carry out needs or desired activities, blurred vision, visual distortion, reduced contrast sensitivity and/or glare with association functional impairment and supporting documentation/testing, and cataracts causing symptomatic impairment of visual functions not corrected with tolerable changes in glasses or contact lenses interfering with activities of daily life. PROCEDURE: Consent: The risks, benefits and alternatives of this procedures was discussed with the patient. The patient read and signed the consent forms, was identified and was seated in the exam chair. IOL: MX 60 E 20.5 IOL Diopters: Phacoemulsification with posterior chamber intraocular lens implant: The face was prepped with 5% povidone iodine solution, and a few drops of 5% povidone iodine solution was instilled into the inferior fornix. A non-fenestrated drape was placed over the eye and the lids were parted with the speculum. A paracentesis was made with a 15 degree blade, and 1% lidocaine MPF followed by viscoelastic was injected into the anterior chamber. A 2.4 mm metal micro- keratome was used to create a temporal clear corneal incision. A circular anterior capsulorrhexis was created, followed by hydro-dissection and hydro- delineation. The phacoemulsification hand piece was inserted and the nucleus was removed with the Phaco chop technique. The irrigation-aspiration hand piece was used to remove the residual cortex, and vacuum the posterior capsule. The capsular bag was inflated and viscoelastic and the above-mentioned IOL was injected into the eye with care to insert both leaning and trailing haptics in the capsular bag. The irrigation/aspiration hand piece was reinserted to remove residual viscoelastic from the capsular bag and anterior chamber. The corneal incision was hydrated, and anterior chamber was inflated with sterile BSS via the paracentesis site, and found to be watertight. Postop medication: 1 drop of prednisolone into operative by followed by 1 drop of Cosopt into operative eye followed by 1 drop of Besivance intraoperative by other:
== END 2019-08-14 10:42 | disposition home or self-care (01) ==
LOC: SC 08:51
PROVIDERS: ATTEND Ophthalmology
DX: H25.11 Age-related nuclear cataract, right eye (principal); Z98.42 Cataract extraction status, left eye; Z79.899 Other long term (current) drug therapy; Z79.82 Long term (current) use of aspirin; Z79.84 Long term (current) use of oral hypoglycemic drugs; Z87.891 Personal history of nicotine dependence; J44.9 Chronic obstructive pulmonary disease, unspecified; E11.9 Type 2 diabetes mellitus without complications; I10 Essential (primary) hypertension; E78.00 Pure hypercholesterolemia, unspecified; Z85.51 Personal history of malignant neoplasm of bladder; Z91.040 Latex allergy status
CPT/HCPCS: 66984; 82962; V2632; J2250; J3490 ×2; J0171; J3010